=== PATIENT | female | born 1930 | race Caucasian/White ===

== ENCOUNTER 2017-03-18 21:53 | Inpatient (IN) ==
--- NOTE | 2017-03-18 22:04 | Emergency Department Note ---
Disposition Clinical Impression: Fall, Compression fracture of L1 lumbar vertebra Disposition: Admitted As Inpatient Condition: Good General Adult HPI - General Chief complaint: ED Fall Stated complaint: Fall at home/Low Back Pain Time Seen by Provider: 03/18/17 21:56 Source: EMS Limitations: altered mental status, age - History of Present Illness Pain Scale: 4 - Related Data Home Medications Medication Instructions Recorded Confirmed Cranberry 400 mg PO DAILY 02/15/16 03/19/17 Donepezil [Aricept] 10 mg PO HS 02/15/16 03/19/17 Docusate [Colace] 100 mg PO BID 03/19/16 03/19/17 Ergocalciferol (VITAMIN D2) 400 unit PO DAILY 03/19/16 03/19/17 [Vitamin D] Paroxetine [Paxil] 20 mg PO DAILY 03/20/16 03/19/17 Megestrol Acetate [Megace] 800 mg PO DAILY 10/18/16 03/19/17 Polyethylene Glycol 3350 17 gm PO DAILY 10/18/16 03/19/17 [Smoothlax] Acetaminophen [Tylenol] 650 mg PO Q6HR PRN 03/19/17 03/19/17 LORazepam [Ativan] 0.5 mg PO Q12HR PRN 03/19/17 03/19/17 Tramadol HCl [Ultram] 50 mg PO TID PRN 03/19/17 03/19/17 Previous Rx's Medication Instructions Recorded Ondansetron ODT [Zofran ODT] 4 mg SL Q6HR PRN #14 tab.rapdis 03/18/17 Allergies Allergy/AdvReac Type Severity Reaction Status Date / Time Sulfa (Sulfonamide Allergy See Verified 03/20/16 13:54 Antibiotics) Comments egg AdvReac Gastrointestinal Verified 03/20/16 13:54 Upset milk AdvReac Gastrointestinal Verified 03/20/16 13:54 Upset morphine AdvReac Confusion Verified 03/20/16 13:54 nitrofurantoin AdvReac Nausea Verified 03/20/16 13:54 [From Macrobid] Penicillins AdvReac Nausea Verified 03/20/16 13:54 Past Medical History - Past Medical History Medical history: Reports: dementia, GERD, hypertension, syncope, other Surgical history: Reports: orthopedic, other Psychiatric history: Reports: no psych history EMT I/99 history: Reports: no EMT I/99 history - Social History Smoking Status: Former smoker Smokeless Tobacco Status: No Alcohol use: Reports: none Drug use: Reports: none Physical Exam - General Limitations: altered mental status, age General appearance: alert, in no apparent distress Course Vital Signs Temperature 97.6 F 03/18/17 21:54 Pulse Rate 75 03/18/17 21:54 Respiratory Rate 16 03/18/17 21:54 Blood Pressure 191/93 03/18/17 21:54 O2 Sat by Pulse Oximetry 99 03/18/17 21:54 Temperature 98.1 F 03/20/17 06:23 Pulse Rate 93 03/20/17 06:23 Respiratory Rate 16 03/20/17 06:23 Blood Pressure 148/67 03/20/17 06:23 O2 Sat by Pulse Oximetry 93 03/20/17 06:23 Oxygen Delivery Oxygen Delivery Room Air Medical Decision Making - Lab Data Result diagrams: 03/19/17 05:00 03/19/17 05:00 Lab Results 03/19/17 03/19/17 Range/Units 00:25 00:25 WBC 15.5 H (4.3-11.1) K/mcL RBC 4.38 (3.82-4.97) M/mcL Hgb 13.0 (11.5-15.4) g/dL Hct 40.5 (35.3-44.9) % MCV 92.5 (83.0-100.0) fL MCH 29.7 (28.0-33.3) pg MCHC 32.1 (31.6-35.5) g/dL RDW 12.9 (11.5-14.5) % Plt Count 270 (140-400) K/mcL MPV 10.9 (9.4-12.4) fL Immature Gran % 0.6 (0-4) % Seg Neutrophils % 86.6 % Lymphocytes % 7.9 % Monocytes % 4.6 % Eosinophils % 0.1 % Basophils % 0.2 % Neutrophils # 13.4 H (1.6-8.9) K/mcL Lymphocytes # 1.2 (0.6-4.6) K/mcL Monocytes # 0.7 (0.0-1.3) K/mcL Eosinophils # 0.0 (0.0-0.6) K/mcL Basophils # 0.0 (0.0-0.2) K/mcL Sodium 141 (136-145) mEq/L Potassium 3.0 L (3.5-4.5) mEq/L Chloride 101 (98-109) mEq/L Carbon Dioxide 28 (19-29) mEq/L BUN 10 (7-20) mg/dL Creatinine 0.79 (0.57-1.11) mg/dL Est GFR ( Amer) > 60 (> 60) Est GFR (Non-Af Amer) > 60 (> 60) BUN/Creatinine Ratio 13 (6-26) Glucose 126 H (70-99) mg/dL Calculated Osmolality 293 (280-300) Calcium 9.2 (8.6-10.8) mg/dL Attestation Statement - Attestation Attestation: I examined this patient and my medical decision-making was reviewed with the Resident Physician. I agree with the documented findings, disposition and treatment plan as described except to the extent set forth below. Face to face time provided Patient sustained a mechanical fall at home. She presents by EMS. She has a history of dementia. History obtained by the daughter. Patient is alert and pleasant and appears in no acute distress.
--- NOTE | 2017-03-18 22:07 | Emergency Department Note ---
Disposition Clinical Impression: Fall Qualifiers: Encounter type: initial encounter Qualified Code(s): W19.XXXA - Unspecified fall, initial encounter Compression fracture of L1 lumbar vertebra Qualifiers: Encounter type: initial encounter Fracture type: closed Qualified Code(s): S32.010A - Wedge compression fracture of first lumbar vertebra, initial encounter for closed fracture Disposition: Admitted As Inpatient Condition: Good Instructions: Vertebral Compression Fracture (ED), Fall Prevention for Older Adults (ED) Prescriptions: Ondansetron ODT [Zofran ODT] 4 mg SL Q6HR PRN #14 tab.rapdis PRN Reason: Nausea And Vomiting Referrals: Florence De DO [Primary Care Provider] - Forms: ED Satisfaction Letter Time of Disposition: 23:23 Fall HPI - General Chief Complaint: ED Fall Stated Complaint: Fall at home/Low Back Pain Time Seen by Provider: 03/18/17 21:56 Source: patient, EMS Mode of arrival: EMS Limitations: altered mental status Nursing Notes Reviewed: Yes Vital Signs Reviewed: Yes - History of Present Illness HPI Narrative: 86-year-old female history of dementia presents to the ER via EMS due to fall. Family reports that she has 24-hour care and they have cameras there as well. States that she got up to walk around and that she is usually supposed to have assistance. States that on the cameras they saw her walking around the bed when she fell and caught herself. States that she did lightly strike her head against the ground. No prolonged downtime. EMS was called and the patient was brought in for evaluation. No antiplatelet or anticoagulation use. She currently complains of low back pain. She has a skin tear to her right elbow where she struck the bed. No numbness tingling or paresthesias. No other complaints. Pt Subjective Complaint: fall Onset (ago): Just [employer] Fall From: standing Fall Witnessed: yes Place Fall Occurred: home Loss of Consciousness: none Prolonged Down Time?: no Symptoms Prior to Fall: none Context: history of frequent falls Location of injury: back Associated symptoms (after fall): Denies: headache, numbness, chest pain, shortness of breath, abdominal pain - Related Data Home Medications Medication Instructions Recorded Confirmed Spironolactone [Aldactone] 25 mg PO QAM 04/19/15 10/18/16 Cranberry 400 mg PO DAILY 02/15/16 10/18/16 Donepezil [Aricept] 10 mg PO HS 02/15/16 10/18/16 Alendronate Sodium 70 mg PO MANDEL 03/19/16 10/18/16 Aspirin 81 mg PO DAILY 03/19/16 10/18/16 Docusate [Colace] 100 mg PO BID 03/19/16 10/18/16 Ergocalciferol (VITAMIN D2) 400 unit PO DAILY 03/19/16 10/18/16 [Vitamin D] Enalapril Maleate [Vasotec] 5 mg PO DAILY 03/20/16 10/18/16 Paroxetine [Paxil] 20 mg PO DAILY 03/20/16 10/18/16 Lactose-Reduced Food [Ensure 1 bottle PO BID 10/18/16 10/18/16 Liquid] MOM Conc [MILK OF MAGNESIA conc] 10 ml PO DAILY PRN 10/18/16 10/18/16 Megestrol Acetate [Megace] 800 mg PO DAILY 10/18/16 10/18/16 Oxycodone HCl [Oxaydo] 5 - 10 mg PO Q6HR PRN 10/18/16 10/18/16 Polyethylene Glycol 3350 17 gm PO DAILY 10/18/16 10/18/16 [Smoothlax] Previous Rx's Medication Instructions Recorded HYDROcodone/Acet 5/325 mg [Saxon 0.5 - 1 tab PO Q4H PRN #10 tab 10/18/16 5-325 mg] Ondansetron ODT [Zofran ODT] 4 mg SL Q6HR PRN #14 tab.rapdis 03/18/17 Allergies Allergy/AdvReac Type Severity Reaction Status Date / Time Sulfa (Sulfonamide Allergy See Verified 03/20/16 13:54 Antibiotics) Comments egg AdvReac Gastrointestinal Verified 03/20/16 13:54 Upset milk AdvReac Gastrointestinal Verified 03/20/16 13:54 Upset morphine AdvReac Confusion Verified 03/20/16 13:54 nitrofurantoin AdvReac Nausea Verified 03/20/16 13:54 [From Macrobid] Penicillins AdvReac Nausea Verified 03/20/16 13:54 All systems ED: reviewed and negative except as stated. Cardiovascular: Denies: chest pain Respiratory: Denies: dyspnea Gastrointestinal: Denies: abdominal pain Musculoskeletal: Reports: back pain. Denies: neck pain Neurological: Denies: numbness, paresthesias Fall PMH - Past Medical History Medical history: Reports: dementia, GERD, hypertension, syncope, other Surgical history: Reports: orthopedic, other Psychiatric history: Reports: no psych history CLIPPER COUNTERS history: Reports: no CLIPPER COUNTERS history - Social History Smoking Status: Former smoker Alcohol use: Reports: none Drug use: Reports: none Physical Exam - General Limitations: altered mental status, age General appearance: alert, in no apparent distress - Head Head exam: atraumatic, normocephalic, normal inspection - Eye Eye exam: Present: normal appearance, EOMI - ENT ENT exam: normal exam - Neck Neck exam: Present: normal inspection, full ROM. Absent: tenderness - Chest Chest inspection: Present: normal inspection, symmetric chest wall rise - Respiratory Respiratory exam: Present: normal lung sounds bilaterally - Cardiovascular Cardiovascular exam: Present: regular rate, normal rhythm, normal heart sounds - Abdominal Exam Abdominal exam: Present: soft, Non-Tender. Absent: tenderness, distention, guarding, rigidity - Extremities Exam Extremities exam: Present: normal inspection, full ROM - Expanded Upper Extremity Exam Shoulder exam: Present: normal inspection, full ROM Arm exam: Present: normal inspection, full ROM Elbow exam: Present: normal inspection, full ROM, other (There is a skin tear to the right elbow.) Forearm/Wrist exam: Present: normal inspection, full ROM Hand exam: Present: normal inspection, full ROM Vascular exam: Normal: radial pulse - Expanded Lower Extremity Exam Hip/Pelvis exam: Present: normal inspection, full ROM Upper leg exam: Present: normal inspection, full ROM Knee exam: Present: normal inspection, full ROM Lower leg exam: Present: normal inspection, full ROM Ankle exam: Present: normal inspection, full ROM Foot/toe exam: Present: normal inspection, full ROM - Neurological Exam Neurological exam: Present: alert, other (Alert to self. GCS 15. Nonfocal neurologic exam. Moves all extremities equally. Sensation to light touch equal in the upper and lower extremities bilaterally. Muscle strength 4/5 in the upper and lower extremities bilaterally.). Absent: oriented X3 - Psychiatric Psychiatric exam: Present: normal affect, normal mood - Skin Skin exam: Present: warm, dry, intact, normal color Course Course Narrative: Patient seen and examined. Family at bedside. We will obtain a CT scan of the head and cervical spine as well as x-rays of the right elbow, pelvis and lumbar spine. - Reevaluation(s) Reevaluation #1: Discussed results of imaging with the patient and family. They report that tramadol has helped her pain in the past and that is about the only pain medication she can take. They are comfortable going home and having the spine surgeon to follow-up with as needed. Reevaluation #2: The patient was unable to bear weight here secondary to pain. Patient will require admission for pain control, PT/OT. Vital Signs Temperature 97.6 F 03/18/17 21:54 Pulse Rate 75 03/18/17 21:54 Respiratory Rate 16 03/18/17 21:54 Blood Pressure 191/93 03/18/17 21:54 O2 Sat by Pulse Oximetry 99 03/18/17 21:54 Temperature 97.6 F 03/18/17 21:54 Pulse Rate 75 03/18/17 21:54 Respiratory Rate 16 03/18/17 21:54 Blood Pressure 191/93 03/18/17 21:54 O2 Sat by Pulse Oximetry 99 03/18/17 21:54 Oxygen Delivery Oxygen Delivery Room Air Fall - [facility] Narrative Medical decision making narrative: 86-year-old female presents to the ER status post fall. History of dementia and was out of bed without assistance. Nonfocal neurologic exam here. CT of the head and cervical spine showed no acute of abnormality. pelvis x-ray with old injuries. Age-indeterminate compression fracture of L1. She does have pain over the site. We attempted to ambulate her here however she was unable to secondary to pain. Family reports she has bad reactions to most pain medications with the exception of tramadol. We will admit the patient to the hospitalist service for back pain, unable to ambulate and for likely PT/OT. - Radiology Data Radiology results reviewed: Yes I reviewed the patient's radiology results. Cervical Spine CT 03/18/17 22:02 IMPRESSION: No acute abnormality of the cervical spine. Remote compression fracture of T2. D/ / Kimo Kate MD / Kimo Kate MD Interpreting Provider: Kimo Kate MD Head CT 03/18/17 22:02 IMPRESSION: No acute intracranial abnormality. D/ / Kimo Kate MD / Kimo Kate MD Interpreting Provider: Kimo Kate MD Pelvis X-Ray 03/18/17 22:02 IMPRESSION: Multiple sites of remote fracture injury. No acute fracture or dislocation identified D/ / Kendell Mckenzie MD / Kendell Mckenzie MD Interpreting Provider: Kendell Mckenzie MD Lumbar Spine X-Ray 03/18/17 22:03 IMPRESSION: Indeterminate age L1 compression fracture is noted which may be acute given the history. D/ / Kendell Mckenzie MD / Kendell Mckenzie MD Interpreting Provider: Kendell Mckenzie MD - EKG Data EKG attestation: Yes I reviewed and interpreted this EKG. EKG results narrative: EKG demonstrates sinus rhythm with a rate of 69 bpm. There is diffuse artifact on the EKG. Normal intervals. Normal axis. Normal R-wave progression. No gross ST elevations or depressions. No acute ischemic findings. S.B.A.R. - S.B.A.R. Situation: Demographics, MOA Background: Presenting Complaint, Relevant PMH, Meds, & Allergies Assessment: Course and respsone to treatment, Exam Concerns, Patient/Family Expectation, Pertinant Lab Results Recommendation: Barrier(s) to disposition S.B.A.R. Report Given to: Dr. Tony Hanks Repor Time: 00:32
[2017-03-18] MEDS ORDERED: traMADol 50 MG TABLET PO ONE (23:14)
[2017-03-18] MEDS ORDERED: Ondansetron ODT 4 MG TAB.RAPDIS SL ONE (23:40)
[2017-03-19 00:34] LABS: Basophils % 0.2 %; Eosinophils % 0.1 %; Hematocrit 40.5 % (35.3-44.9); Immature Granulocytes % 0.6 % (0-4); Lymphocytes # 1.2 K/mcL (0.6-4.6); Lymphocytes % 7.9 %; Mean Corpuscular HGB Conc 32.1 g/dL (31.6-35.5); Mean Corpuscular Hemoglobin 29.7 pg (28.0-33.3); Mean Corpuscular Volume 92.5 fL (83.0-100.0); Mean Platelet Volume 10.9 fL (9.4-12.4); Monocytes # 0.7 K/mcL (0.0-1.3); Monocytes % 4.6 %; Neutrophils # 13.4 K/mcL (1.6-8.9); Platelet Count 270 K/mcL (140-400); Red Blood Count 4.38 M/mcL (3.82-4.97); Red Cell Distribution Width 12.9 % (11.5-14.5); Segmented Neutrophils % 86.6 %
[2017-03-19 00:50] LABS: BUN/Creatinine Ratio 13 (6-26); Blood Urea Nitrogen 10 mg/dL (7-20); Calcium 9.2 mg/dL (8.6-10.8); Carbon Dioxide 28 mEq/L (19-29); Chloride 101 mEq/L (98-109); Glucose 126 mg/dL (70-99); Osmolality,Calculated 293 (280-300); Sodium 141 mEq/L (136-145); eGFR For African Americans > 60 (> 60); eGFR For Non-African Americans > 60 (> 60)
[2017-03-19] MEDS ORDERED: Ondansetron 4 MG/2 ML VIAL IVP PRN (02:01)
[2017-03-19] MEDS ORDERED: Naloxone 0.4 MG/ML INJ IVP PRN (02:01)
[2017-03-19] MEDS ORDERED: Acetaminophen 325 MG TABLET PO PRN (02:01)
[2017-03-19] MEDS ORDERED: traMADol 50 MG TABLET PO PRN (02:04)
[2017-03-19] MEDS: 0.9 % Sodium Chloride 1,000 ML IVC SCH ×2 (02:28→16:33)
[2017-03-19] MEDS: *HR* LORazepam 0.5 MG TABLET PO PRN (02:28)
--- NOTE | 2017-03-19 02:38 | Internal Med History&Physical ---
Date of Encounter: 03/19/17 Time of Encounter: 01:40 Assessment and Plan (1) Fall Current visit: Yes Status: Acute s/p fall Pt has history of recurrent falls and was admitted for the same issue last year in February Current imaging findings concerning for a L1 and T2 compression fracture, however no definitive reading reported about the chronicity or acuity of these fractures will continue supportive care pain control fall precautions PT/OT evaluation when able consider spinal surgery evaluation if symptoms persist Qualifiers: Encounter type: initial encounter Qualified Code(s): W19.XXXA - Unspecified fall, initial encounter (2) Dementia Current visit: No Status: Chronic Pt's mental status at baseline as per family continue home medications Qualifiers: Dementia type: Alzheimer's disease Alzheimer's disease onset: unspecified onset Dementia behavioral disturbance: with behavioral disturbance Qualified Code(s): G30.8 - Other Alzheimer's disease; F02.81 - Dementia in other diseases classified elsewhere with behavioral disturbance (3) HTN (hypertension) Current visit: No Status: Chronic Qualifiers: Hypertension type: essential hypertension Qualified Code(s): I10 - Essential (primary) hypertension (4) Leukocytosis, unspecified Current visit: Yes Status: Acute Of unclear etiology will obtain UA no clinical signs of infectious etiology present will monitor off abx at this time, If UA is concerning for UTI, will start her on empiric abx Qualifiers: Leukocytosis type: unspecified Qualified Code(s): D72.829 - Elevated white blood cell count, unspecified (5) DVT prophylaxis Current visit: Yes Status: Acute Heparin SQ Internal Medicine - H&P: HPI Chief complaint: s/p fall Admitted From: Home Plans for Post Hospital Care: Transfer [facility] History of present illness: Ms. Mahoney is a 86 year old female with PMH of Dementia, HTN, GERD, multiple falls who was brought to the ER s/p fall. Patient lives alone however has 24 hour video surveillance supervision which found the patient getting out of bed and falling to the ground, due to which EMS brought the patient to the ER. At baseline, patient is AAO x 0 due to her dementia but she is pleasantly confused. She was evaluated with her family present at bedside. Pt reports of severe lower back pain, imaging findings are concerning for L1 compression fracture however it is not definitive if this an acute process. Theres also a remote compression fracture of T2 reported. As per family, patient is unable to tolerate narcotics because it causes her severe delirium. She received her home dose of tramadol in the ER which did not provide her with any relief. At this time she is laying in bed and able to converse. reports of severe lower back and pelvis pain. Denies any headache, chest pain, sob, abd pain, n/v, fevers, or chills. I had a detailed discussion about patient's advance directives. Her family stated that the patient would like to be DNR/DNI Past Med Surg Social Fam HX - Past Medical History Medical history: dementia, GERD, hypertension, osteoporosis, syncope, other Psychiatric history: no psych history - Past Surgical History Surgical History: orthopedic, other - Social History Smoking Status: Former smoker Smokeless Tobacco Status: No Alcohol use: none Drug use: none - Family History Mother Living Status: Hx Family Cardiac Disorders: Yes Hx Family Respiratory Disorders: No Hx Family Cancer: No Hx Family GI Disorders: No Hx Family Endocrine Disorder: No Hx Family Neuromuscular Disorders: No Hx Family Neurologic Disorders: Yes (Stroke) Hx Family HEENT Disorders: No Hx Family Autoimmune Disorders: No Internal Medicine - H&P: Meds Cranberry 400 mg PO DAILY 02/15/16 [History] Donepezil [Aricept] 10 mg PO HS 02/15/16 [History] Docusate [Colace] 100 mg PO BID 03/19/16 [History] Ergocalciferol (VITAMIN D2) [Vitamin D] 400 unit PO DAILY 03/19/16 [History] Paroxetine [Paxil] 20 mg PO DAILY 03/20/16 [History] Megestrol Acetate [Megace] 800 mg PO DAILY 10/18/16 [History] Polyethylene Glycol 3350 [Smoothlax] 17 gm PO DAILY 10/18/16 [History] Ondansetron ODT [Zofran ODT] 4 mg SL Q6HR PRN #14 tab.rapdis 03/18/17 [Rx] Acetaminophen [Tylenol] 650 mg PO Q6HR PRN 03/19/17 [History] LORazepam [Ativan] 0.5 mg PO Q12HR PRN 03/19/17 [History] Tramadol HCl [Ultram] 50 mg PO TID PRN 03/19/17 [History] 3 Allergy/AdvReac Type Severity Reaction Status Date / Time Sulfa (Sulfonamide Allergy See Verified 03/20/16 13:54 Antibiotics) Comments egg AdvReac Gastrointestinal Verified 03/20/16 13:54 Upset milk AdvReac Gastrointestinal Verified 03/20/16 13:54 Upset morphine AdvReac Confusion Verified 03/20/16 13:54 nitrofurantoin AdvReac Nausea Verified 03/20/16 13:54 [From Macrobid] Penicillins AdvReac Nausea Verified 03/20/16 13:54 All Systems PM: A 10-system review of systems was performed and is negative for pertinent findings except as documented above in the HPI. - Constitutional Constitutional: as per HPI - Constitutional Vitals: Temp Pulse Resp BP Pulse Ox 97.6 F 75 16 0/0 99 03/18/17 21:54 03/18/17 21:54 03/19/17 00:41 03/19/17 00:41 03/18/17 21:54 General appearance: Present: A&O X 1, no acute distress, underweight - Head Head exam: Present: atraumatic, normocephalic - Respiratory Respiratory exam: Present: CTAB. Absent: respiratory distress, wheezes - Cardiovascular Cardiovascular exam: Present: RRR, +S1, +S2. Absent: diastolic murmur, systolic murmur, tachycardia - GI/Abdominal GI/Abdominal exam: Present: normal bowel sounds, soft, no peritoneal signs. Absent: distended, tenderness - Extremities Exam Extremities exam: Present: warm, radial pulses palpable and symmetrical. Absent : calf tenderness - Neurological Exam Neurological exam: Present: alert Internal Med - H&P Results - Labs CBC & Chem 7: 03/19/17 00:25 03/19/17 00:25
[2017-03-19] MEDS: Ketorolac 30 MG/ML VIAL IVP PRN (02:46)
[2017-03-19 04:47] LABS: Bilirubin,Urine Small (Negative); Blood,Urine Large (Negative); Clarity,Urine Cloudy (Clear); Color,Urine Yellow (Yellow); Glucose,Urine (UA) Normal (Normal); Ketones,Urine 40 mg/dL (Negative); Leukocyte Esterase,Urine Small (Negative); Nitrite,Urine Negative (Negative); Protein,Urine 30 mg/dL (Neg-Trace); Urobilinogen,Urine Normal (Normal)
[2017-03-19 04:50] LABS: Bacteria,Urine Many per hpf (None-Few); Hyaline Casts,Urine None Seen per lpf (None-Few); RBC,Urine 0-3 per hpf (0-3); Squamous Epithelial Cell,Urine None Seen per lpf (None-Few); WBC,Urine 30-50 per hpf (0-3)
[2017-03-19 05:18] LABS: Basophils % 0.2 %; Hematocrit 36.6 % (35.3-44.9); Immature Granulocytes % 0.7 % (0-4); Lymphocytes # 0.7 K/mcL (0.6-4.6); Lymphocytes % 5.5 %; Mean Corpuscular HGB Conc 32.8 g/dL (31.6-35.5); Mean Corpuscular Hemoglobin 29.9 pg (28.0-33.3); Monocytes # 0.4 K/mcL (0.0-1.3); Monocytes % 3.1 %; Platelet Count 251 K/mcL (140-400); Red Blood Count 4.02 M/mcL (3.82-4.97); Segmented Neutrophils % 90.5 %
[2017-03-19 05:40] LABS: BUN/Creatinine Ratio 13 (6-26); Blood Urea Nitrogen 10 mg/dL (7-20); Carbon Dioxide 30 mEq/L (19-29); Chloride 104 mEq/L (98-109); Glucose 120 mg/dL (70-99); Magnesium 1.7 mg/dL (1.6-2.6); Osmolality,Calculated 292 (280-300); Phosphorous 3.8 mg/dL (2.3-4.7); Potassium 3.5 mEq/L (3.5-4.5); Sodium 141 mEq/L (136-145); eGFR For African Americans > 60 (> 60); eGFR For Non-African Americans > 60 (> 60)
[2017-03-19] MEDS: *HR* Heparin 5,000 UNIT/ML VIAL SQ SCH ×2 (07:46→16:34)
[2017-03-19] MEDS: Megestrol Acetate 400 MG/10 ML UDC PO SCH (10:33)
[2017-03-19] MEDS: Cholecalciferol (D-3) 1,000 UNIT TABLET PO SCH (10:33)
[2017-03-19] MEDS: CRANBERRY PO SCH (10:34)
[2017-03-19] MEDS: cephALEXin 500 MG CAPSULE PO SCH ×2 (10:34→20:29)
--- NOTE | 2017-03-19 12:11 | Electrocardiograph Report ---
[place] [id number] Test Date: 2017-03-18 Pat Name: Rachel Mahoney Department: 102 Room: [facility] Gender: F Swatch Checker: Jaimie : 1930 Requested By: Hesham Kan Order Number: [id number] Reading MD: Lynette Gil Measurements Intervals [place] Rate: 69 P: 61 [place]: 165 QRS: 36 QRSD: 94 T: 71 QT: 406 QTc: 426 Interpretive Statements PROBABLY SINUS RHYTHM ARTIFACT LIMITS INTERPRETATION Electronically Signed On 03-19-2017 12:09:58 EDT by Lynette Gil
--- NOTE | 2017-03-19 16:52 | Event Note ---
Date of Encounter: 03/19/17 Time of Encounter: 10:15 Patient is doing well today. Denies any pain as long as she does not move. Consulted spine surgery for vertebral fracture. Will follow recommendations. Physical therapy consulted. family services assistant consulted for discharge planning.
[2017-03-19] MEDS ORDERED: Haloperidol Lactate 5 MG/ML VIAL IM ONE (22:49)
[2017-03-20] MEDS: Ketorolac 30 MG/ML VIAL IVP PRN ×2 (00:28→14:26)
[2017-03-20] MEDS: 0.9 % Sodium Chloride 1,000 ML IVC SCH (06:24)
[2017-03-20] MEDS: *HR* Heparin 5,000 UNIT/ML VIAL SQ SCH ×2 (06:25→19:21)
[2017-03-20] MEDS: Cholecalciferol (D-3) 1,000 UNIT TABLET PO SCH (09:55)
[2017-03-20] MEDS: Megestrol Acetate 400 MG/10 ML UDC PO SCH (09:55)
[2017-03-20] MEDS: cephALEXin 500 MG CAPSULE PO SCH ×2 (09:55→21:33)
[2017-03-20] MEDS: CRANBERRY PO SCH (09:56)
--- NOTE | 2017-03-20 12:10 | Spine Progress Note ---
Date of Encounter: 03/20/17 Time of Encounter: 12:08 - Assessment and Plan (1) Osteopenia Current Visit: Yes Status: Chronic Qualifiers: Osteopenia location: spine Qualified Code(s): M85.88 - Other specified disorders of bone density and structure, other site (2) Vertebral compression fracture Current Visit: Yes Status: Acute We are going to obtain an MRI of the lumbar spine to assess the acuity of the fracture. The family is going to decide between nonoperative management with analgesics and early mobilization as tolerated, versus consideration of vertebral augmentation via kyphoplasty. We will confer after results of MRI evaluation. If the family and patient decided on kyphoplasty she would need medical optimization and clearance and plan to do procedure Sunday, 2016. Qualifiers: Encounter type: initial encounter Qualified Code(s): M48.50XA - Collapsed vertebra, not elsewhere classified, site unspecified, initial encounter for fracture Subjective Principal diagnosis: Vertebral compression fracture L2, osteopenia Interval history: 86-year-old with dementia status post fall several days ago. She was admitted from the ER for definitive management. Patient's daughter at bedside who act as the predominant historian. She complains of pain in her lower back. On examination she is afebrile vital signs stable. She is alert. She complains of low back pain. She has tenderness to palpation in the thoracolumbar region. She is neurovascularly intact with regard to her bilateral upper and lower extremities. Radiographic evaluation includes AP and lateral views of the lumbar spine. There is multilevel degenerative changes seen. There is an overall osteopenic appearance of the bones. Is a vertebral compression fracture at L2. Objective Vital signs: Vital Signs Temp Pulse Resp BP Pulse Ox 03/20/17 11:35 98.9 F 98 16 165/72 93 03/20/17 06:23 98.1 F 93 16 148/67 93 03/20/17 04:29 98.5 F 70 15 146/83 94 03/20/17 00:23 102 141/64 03/19/17 23:46 98.9 F 99 11 192/92 93 03/19/17 21:14 98.2 F 89 18 181/81 92 03/19/17 14:31 98.7 F 85 16 157/84 93 Intake and Output 03/19/17 03/20/17 03/20/17 23:59 07:59 15:59 Intake Total 1000 / 1000 Output Total 600 / 600 Balance -600 / -600 1000 / 1000 Intake: IV Fluids 1000 / 1000 0.9 % Sodium Chloride 1,000 ML 1000 / 1000 @ 75 mls/hr IVC .[id number] JAMES Rx #:[id number] Output: Urine 600 / 600 Other: Weight 41.022 kg - Labs CBC & BMP: 03/19/17 05:00 03/19/17 05:00 Labs: Abnormal lab results WBC 12.1 K/mcL (4.3-11.1) H 03/19/17 05:00 Neutrophils # 11.0 K/mcL (1.6-8.9) H 03/19/17 05:00 Carbon Dioxide 30 mEq/L (19-29) H 03/19/17 05:00 Glucose 120 mg/dL (70-99) H 03/19/17 05:00 Urine Clarity Cloudy (Clear) A 03/19/17 04:28 Urine Protein 30 mg/dL (Neg-Trace) H 03/19/17 04:28 Urine Ketones 40 mg/dL (Negative) H 03/19/17 04:28 Urine Blood Large (Negative) H 03/19/17 04:28 Urine Bilirubin Small (Negative) H 03/19/17 04:28 Ur Leukocyte Esterase Small (Negative) H 03/19/17 04:28 Urine Microscopic WBC 30-50 per hpf (0-3) H 03/19/17 04:28 Urine Bacteria Many per hpf (None-Few) H 03/19/17 04:28 Consult Discharge Plan - Plan Referrals: Florence De, [Primary Care Provider] -
--- NOTE | 2017-03-20 17:43 | Internal Med Progress Note ---
Date of Encounter: 03/20/17 Time of Encounter: 17:47 - Assessment and plan (1) Fall Current Visit: Yes Status: Acute Assessment and plan: s/p fall on day of presentation. Current imaging findings concerning for a L1 and T2 compression fracture, however no definitive reading reported about the chronicity or acuity of fractures. Cont pain control, fall precautions, PT/OT evaluation when able. MRI of the lumbar spine to assess the acuity of the fracture. Ortho following Qualifiers: Encounter type: initial encounter Qualified Code(s): W19.XXXA - Unspecified fall, initial encounter (2) HTN (hypertension) Current Visit: No Status: Chronic Assessment and plan: BP elevated but not on antihypertensives at home. Add low dose amlodipine. Monitor BP and titrate PRN Qualifiers: Hypertension type: essential hypertension Qualified Code(s): I10 - Essential (primary) hypertension (3) Bacteriuria, asymptomatic Current Visit: Yes Status: Acute Assessment and plan: WBC 12K. Cont treating for asymptomatic bacteriuria with advanced age. Urine cx pending (4) Dementia Current Visit: No Status: Chronic Assessment and plan: per hx. Mentation appears at baseline. Cont home Aricept. Supportive care Qualifiers: Dementia type: Alzheimer's disease Alzheimer's disease onset: unspecified onset Dementia behavioral disturbance: with behavioral disturbance Qualified Code(s): G30.8 - Other Alzheimer's disease; F02.81 - Dementia in other diseases classified elsewhere with behavioral disturbance (5) DVT prophylaxis Current Visit: Yes Status: Acute - Subjective Interval history: Seen and examined at bedside, patient is alert to self only, she is able to have a conversation but is not able to give details. She says her back hurts but does not elaborate. Denies CP, no SOB. - Constitutional Vitals: Temp Pulse Resp BP Pulse Ox 98.8 F 107 16 159/75 93 03/20/17 15:31 03/20/17 15:31 03/20/17 15:31 03/20/17 15:31 03/20/17 15:31 General appearance: Present: A&O X 1, no acute distress, underweight - Head Head exam: Present: atraumatic, normocephalic - Eye Eye exam: Present: PERRL, conjuntiva pink, sclera anicteric Pupils: Present: PERRL - Neck Neck exam general surgery: Present: supple, trachea midline. Absent: lymphadenopathy - Respiratory Respiratory exam: Present: CTAB. Absent: accessory muscle use, rales, rhonchi, wheezes - Cardiovascular Cardiovascular exam: Present: RRR, +S1, +S2. Absent: diastolic murmur, gallop, rubs, systolic murmur - GI/Abdominal GI/Abdominal exam: Present: normal bowel sounds, soft, no peritoneal signs. Absent: distended, tenderness - Extremities Exam Extremities exam: Present: warm, radial pulses palpable and symmetrical. Absent : calf tenderness, cyanotic, pedal edema - Neurological Exam Neurological exam: Present: CN II-XII intact, oriented X3, no focal deficits. Absent: pronater drift, facial droop, speech deficit - Skin Skin exam: Present: dry, intact Internal Medicine: Result - Labs CBC & Chem 7: 03/19/17 05:00 03/19/17 05:00 - Impressions Impressions Lumbar Spine MRI 03/20/17 11:39 IMPRESSION: 1. There is an acute L2 burst fracture with approximately 20% loss of vertebral body height. 2. There are suspected subacute/chronic bilateral sacral insufficiency fractures extending through the S2 vertebral body with associated cortical deformity. These are new compared to a CT of the left hip on February 15, 2016. 3. No critical central spinal canal stenosis. D/ : / 03/20/2017 15:58:35 Harrison Beckman MD / sol Interpreting Provider: Harrison Beckman MD Consult Discharge Plan - Plan Referrals: Florence De DO [Primary Care Provider] -
[2017-03-20] MEDS ORDERED: *HR* Enoxaparin 40 MG/0.4 ML SYRINGE SQ SCH (17:45)
[2017-03-20] MEDS: amLODIPine 5 MG TABLET PO SCH (19:20)
[2017-03-21] MEDS: 0.9 % Sodium Chloride 1,000 ML IVC SCH ×2 (04:10→22:03)
[2017-03-21] MEDS: Ketorolac 30 MG/ML VIAL IVP PRN ×3 (04:11→23:50)
[2017-03-21] MEDS: *HR* Heparin 5,000 UNIT/ML VIAL SQ SCH ×2 (05:54→17:57)
[2017-03-21 06:12] LABS: Hematocrit 38.9 % (35.3-44.9); Hemoglobin 12.6 g/dL (11.5-15.4); Mean Corpuscular HGB Conc 32.4 g/dL (31.6-35.5); Mean Corpuscular Volume 89.6 fL (83.0-100.0); Mean Platelet Volume 11.7 fL (9.4-12.4); Platelet Count 255 K/mcL (140-400); Red Blood Count 4.34 M/mcL (3.82-4.97); Red Cell Distribution Width 13.1 % (11.5-14.5)
[2017-03-21 06:28] LABS: Alanine Aminotransferase 6 Units/L (0-55); Alkaline Phosphatase 70 Units/L (38-126); Aspartate Amino Transferase 17 Units/L (5-34); BUN/Creatinine Ratio 10 (6-26); Bilirubin,Total 0.8 mg/dL (0.2-1.2); Blood Urea Nitrogen 7 mg/dL (7-20); Calcium 8.6 mg/dL (8.6-10.8); Carbon Dioxide 22 mEq/L (19-29); Chloride 107 mEq/L (98-109); Globulin 3.1 g/dL (2.4-3.5); Glucose 75 mg/dL (70-99); Osmolality,Calculated 289 (280-300); Potassium 2.9 mEq/L (3.5-4.5); Sodium 141 mEq/L (136-145); Total Protein 6.1 g/dL (6.0-8.3); eGFR For African Americans > 60 (> 60); eGFR For Non-African Americans > 60 (> 60)
[2017-03-21 06:31] LABS: INR 1.2; Prothrombin Time 12.6 Seconds (9.4-12.1)
--- NOTE | 2017-03-21 09:29 | Spine Progress Note ---
Date of Encounter: 03/21/17 Time of Encounter: 09:27 - Assessment and Plan (1) Osteopenia Current Visit: Yes Status: Chronic Qualifiers: Osteopenia location: spine Qualified Code(s): M85.88 - Other specified disorders of bone density and structure, other site (2) Vertebral compression fracture Current Visit: Yes Status: Acute Marais examination confirmed an acute L1 fracture. It also confirmed sacral insufficiency fractures. In the interest of pain control and avoidance of chronic narcotic treatment I find it reasonable to consider a kyphoplasty L1. Risk benefits possible competitions and alternatives were discussed with the patient and daughter. The daughters, come in for consent and they would like to proceed. She understands that the patient will need medical optimization and clearance prior to any surgical intervention. Qualifiers: Encounter type: initial encounter Qualified Code(s): M48.50XA - Collapsed vertebra, not elsewhere classified, site unspecified, initial encounter for fracture (3) Sacral insufficiency fracture Current Visit: Yes Status: Acute Qualifiers: Encounter type: initial encounter Qualified Code(s): M84.48XA - Pathological fracture, other site, initial encounter for fracture Subjective Principal diagnosis: Vertebral compression fracture L2, osteopenia Interval history: 86-year-old with dementia status post fall several days ago. She was admitted from the ER for definitive management. Spoke with patient's daughter over the phone and presence of nursing staff. Would like to proceed with kyphoplasty in his can come into cosign for the procedure. Continues to have pain in the low back.. She complains of pain in her lower back. On examination she is afebrile vital signs stable. She is alert. She complains of low back pain. She has tenderness to palpation in the thoracolumbar region. She is neurovascularly intact with regard to her bilateral upper and lower extremities. MRI examination of the lumbar spine reveals multilevel degenerative changes an acute fracture of L1. There is also sacral insufficiency fractures nondisplaced. Objective Vital signs: Vital Signs Temp Pulse Resp BP Pulse Ox 03/21/17 06:49 97.6 F 109 16 123/73 93 03/21/17 03:54 98.1 F 94 18 163/91 95 03/20/17 23:49 98.3 F 110 20 160/81 94 03/20/17 20:46 97.9 F 96 17 167/82 94 03/20/17 15:31 98.8 F 107 16 159/75 93 03/20/17 11:35 98.9 F 98 16 165/72 93 Intake and Output 03/20/17 03/21/17 03/21/17 23:59 07:59 15:59 Intake Total 1000 / 1000 225 / 225 Output Total 375 / 375 350 / 350 Balance 625 / 625 -125 / -125 Intake: IV Fluids 1000 / 1000 0.9 % Sodium Chloride 1,000 ML 1000 / 1000 @ 75 mls/hr IVC .[id number] JAMES Rx #:[id number] Oral 225 / 225 Output: Catheter 375 / 375 350 / 350 Other: Weight 40.597 kg Patient Weight 03/21/17 23:59 Weight 40.597 kg - Labs CBC & BMP: 03/21/17 05:20 03/21/17 05:20 Labs: Abnormal lab results Neutrophils # 11.0 K/mcL (1.6-8.9) H 03/19/17 05:00 PT 12.6 Seconds (9.4-12.1) H 03/21/17 05:20 Potassium 2.9 mEq/L (3.5-4.5) L 03/21/17 05:20 Albumin 3.0 g/dL (3.5-5.0) L 03/21/17 05:20 Albumin/Globulin Ratio 1.0 (1.1-2.2) L 03/21/17 05:20 Urine Clarity Cloudy (Clear) A 03/19/17 04:28 Urine Protein 30 mg/dL (Neg-Trace) H 03/19/17 04:28 Urine Ketones 40 mg/dL (Negative) H 03/19/17 04:28 Urine Blood Large (Negative) H 03/19/17 04:28 Urine Bilirubin Small (Negative) H 03/19/17 04:28 Ur Leukocyte Esterase Small (Negative) H 03/19/17 04:28 Urine Microscopic WBC 30-50 per hpf (0-3) H 03/19/17 04:28 Urine Bacteria Many per hpf (None-Few) H 03/19/17 04:28 Consult Discharge Plan - Plan Referrals: Florence De, [Primary Care Provider] -
[2017-03-21] MEDS: cephALEXin 500 MG CAPSULE PO SCH ×2 (09:46→20:21)
[2017-03-21] MEDS: amLODIPine 5 MG TABLET PO SCH (09:46)
[2017-03-21] MEDS: Megestrol Acetate 400 MG/10 ML UDC PO SCH (09:46)
[2017-03-21] MEDS: CRANBERRY PO SCH (09:47)
[2017-03-21] MEDS: Cholecalciferol (D-3) 1,000 UNIT TABLET PO SCH (09:47)
--- NOTE | 2017-03-21 12:40 | Cardiology Consult Note ---
<Dimitrios Cuellar - Last Filed: 03/21/17 15:50> Date of Encounter: 03/21/17 Time of Encounter: 12:24 Assessment and Plan (1) Pre-operative cardiovascular examination Current Visit: Yes Status: Acute No cardiac complaints. Cardiac risk factors include HTN and advanced age. Poor functional capacity d/t de-conditioning. EKG shows SR with no acute ST changes. TTE ordered by primary team. TTE shows LVEF 65-70%. Somewhat hyperdynamic LV systolic function with HR low 100's. There is color-flow turbulence within the LV outflow tract - Doppler was not performed. Possible dynamic outflow gradient. There is evidence of mild diastolic dysfunction of the left ventricle. Normal right ventricular size and function. Mild aortic regurgitation. Mild tricuspid regurgitation. Mild pulmonary hypertension. Recommend IV fluid nikki-operatively. Likely ST due to pain and dehydration. Discussed with Dr. Perrin. No indication for further cardiac testing. Intermediate risk for surgery. Discussion w patient/family: The assessment and plan as outlined above was discussed with the patient and/or family members who expressed understanding and agreement. All questions were answered. Thank you for involving us in the care of your patient. Please call with any questions. History of Present Illness Consult date: 03/21/17 Requesting physician: Sabi Oleary Consult reason: Pre-operative risk assessment Chief complaint: Fall History of present illness: Ms. Mahoney is a 86 year old female with a history of HTN and dementia who presents after falling at home. She was found to have a L1 lumbar fracture. Cardiology consulted for pre-operative cardiovascular assessment. Patient confused at baseline. Daughter reports 24 hour care at home and video surveillance at night. Patient was seen to get out of bed> before help could get to her she already fell on the floor. She does not feel that she has loss of consciousness. She is unsteady on her feet. She falls frequently. She does occasionally c/o dizziness. She was brought to the hospital for severe back pain. Denies complaints of chest pain or SOB. No history of CAD. Stress test completed over 10 years ago. Past Med Surg Social Fam HX - Past Medical History Medical history: dementia, GERD, hypertension, other Psychiatric history: no psych history - Past Surgical History Surgical History: orthopedic, other - Social History Smoking Status: Former smoker Smokeless Tobacco Status: No Alcohol use: none Drug use: none - Family History Mother Living Status: Hx Family Cardiac Disorders: Yes Hx Family Respiratory Disorders: No Hx Family Cancer: No Hx Family GI Disorders: No Hx Family Endocrine Disorder: No Hx Family Neuromuscular Disorders: No Hx Family Neurologic Disorders: Yes (Stroke) Hx Family HEENT Disorders: No Hx Family Autoimmune Disorders: No Medications and Allergies Cranberry 400 mg PO DAILY 02/15/16 [History] Donepezil [Aricept] 10 mg PO HS 02/15/16 [History] Docusate [Colace] 100 mg PO BID 03/19/16 [History] Ergocalciferol (VITAMIN D2) [Vitamin D] 400 unit PO DAILY 03/19/16 [History] Paroxetine [Paxil] 20 mg PO DAILY 03/20/16 [History] Megestrol Acetate [Megace] 800 mg PO DAILY 10/18/16 [History] Polyethylene Glycol 3350 [Smoothlax] 17 gm PO DAILY 10/18/16 [History] Ondansetron ODT [Zofran ODT] 4 mg SL Q6HR PRN #14 tab.rapdis 03/18/17 [Rx] Acetaminophen [Tylenol] 650 mg PO Q6HR PRN 03/19/17 [History] LORazepam [Ativan] 0.5 mg PO Q12HR PRN 03/19/17 [History] Tramadol HCl [Ultram] 50 mg PO TID PRN 03/19/17 [History] 3 Allergy/AdvReac Type Severity Reaction Status Date / Time Sulfa (Sulfonamide Allergy See Verified 03/20/16 13:54 Antibiotics) Comments egg AdvReac Gastrointestinal Verified 03/20/16 13:54 Upset milk AdvReac Gastrointestinal Verified 03/20/16 13:54 Upset morphine AdvReac Confusion Verified 03/20/16 13:54 nitrofurantoin AdvReac Nausea Verified 03/20/16 13:54 [From Macrobid] Penicillins AdvReac Nausea Verified 03/20/16 13:54 All Systems Review: A 10-system review of systems was performed and is negative for pertinent findings except as documented above in the HPI. Physical Examination Vital Signs Temp Pulse Resp BP Pulse Ox 03/21/17 06:49 97.6 F 109 16 123/73 93 03/21/17 03:54 98.1 F 94 18 163/91 95 03/20/17 23:49 98.3 F 110 20 160/81 94 03/20/17 20:46 97.9 F 96 17 167/82 94 03/20/17 15:31 98.8 F 107 16 159/75 93 Intake and Output 03/20/17 03/21/17 03/21/17 23:59 07:59 15:59 Intake Total 1000 / 1000 225 / 225 100 / 100 Output Total 375 / 375 350 / 350 Balance 625 / 625 -125 / -125 100 / 100 Intake: IV Fluids 1000 / 1000 0.9 % Sodium Chloride 1,000 ML 1000 / 1000 @ 75 mls/hr IVC .[id number] JAMES Rx #:[id number] Oral 225 / 225 100 / 100 Output: Catheter 375 / 375 350 / 350 Other: Meal Breakfast Percent of Meal Consumed 10% Weight 40.597 kg Patient Weight 03/21/17 23:59 Weight 40.597 kg General: Conversant, No Apparent Distress, Other (confused, frail elderly female. ) HEENT: Atraumatic, Normocephaly, Mucus Membranes Moist Neck: No JVD, Normal carotid pulses Cardiac: Reg Rate and Rhythm, Normal S1 and S2, No Murmur, Other (ST on EKG) Lungs: Normal Breath Sounds, No Wheeze, Rales, Rhonchi Neuro: Alert and responsive, No focal deficits noted Abdomen: Soft, Non-Tender Skin: No rashes noted on visualized skin Musculoskeletal: No Chest Wall Tenderness Extremities: No Clubbing, No Cyanosis, No Edema, Normal Pulses Results 03/21/17 05:20 03/21/17 05:20 Lab Results 03/21/17 03/21/17 03/21/17 05:20 05:20 05:20 WBC 8.3 Hgb 12.6 Hct 38.9 Plt Count 255 INR 1.2 Sodium 141 Potassium 2.9 L Chloride 107 Carbon Dioxide 22 BUN 7 Creatinine 0.67 Glucose 75 Calcium 8.6 Total Bilirubin 0.8 AST 17 ALT 6 Alkaline Phosphatase [address] 03/18/17 22:02 IMPRESSION: No acute abnormality of the cervical spine. Remote compression fracture of T2. D/ / Kimo Kate MD / Kimo Kate MD Interpreting Provider: Kimo Kate MD Head CT 03/18/17 22:02 IMPRESSION: No acute intracranial abnormality. D/ / Kimo Kate MD / Kimo Kate MD Interpreting Provider: Kimo Kate MD Pelvis X-Ray 03/18/17 22:02 IMPRESSION: Multiple sites of remote fracture injury. No acute fracture or dislocation identified D/ / Kendell Mckenzie MD / Kendell Mckenzie MD Interpreting Provider: Kendell Mckenzie MD Lumbar Spine X-Ray 03/18/17 22:03 IMPRESSION: Indeterminate age L1 compression fracture is noted which may be acute given the history. D/ / Kendell Mckenzie MD / Kendell Mckenzie MD Interpreting Provider: Kendell Mckenzie MD Lumbar Spine MRI 03/20/17 11:39 IMPRESSION: 1. There is an acute L2 burst fracture with approximately 20% loss of vertebral body height. 2. There are suspected subacute/chronic bilateral sacral insufficiency fractures extending through the S2 vertebral body with associated cortical deformity. These are new compared to a CT of the left hip on February 15, 2016. 3. No critical central spinal canal stenosis. D/ / 03/20/2017 15:58:35 Harrison Beckman MD / sol Interpreting Provider: Harrison Beckman MD Echocardiogram 03/21/17 09:42 Impressions: LVEF 65-70%. Somewhat hyperdynamic LV systolic function with HR low 100's. There is color-flow turbulence within the LV outflow tract - Doppler was not performed. Possible dynamic outflow gradient. There is evidence of mild diastolic dysfunction of the left ventricle. Normal right ventricular size and function. Mild aortic regurgitation. Mild tricuspid regurgitation. Mild pulmonary hypertension. - Imaging and Cardiology Echo: pending - EKG Interpretation EKG results cardiology: personally reviewed (New ekg ordered d/t poor EKG quality) Consult Discharge Plan - Plan Referrals: Florence De, [Primary Care Provider] - <Mainor Perrin - Last Filed: 03/21/17 18:15> Date of Encounter: 03/21/17 Assessment and Plan Discussion w patient/family: The assessment and plan as outlined above was discussed with the patient and/or family members who expressed understanding and agreement. All questions were answered. Thank you for involving us in the care of your patient. Please call with any questions. History of Present Illness History of present illness: Ms. Mahoney is a 86 year old female All Systems Review: A 10-system review of systems was performed and is negative for pertinent findings except as documented above in the HPI. Results 03/21/17 05:20 03/21/17 05:20 - Attending Attestation PT seen and examined independently, discussed with pts daughter (POA) at bedside , essentially agree with documented findings, my evaluation as follows: CC. Back pain HPI: Pt is not a reliable historian, hx obtained from daughter and medical record. Pt attempted to walk by herself, fell getting out of bed, landed on the floor, immediately complaining of severe back pain. She has hx frequent falls, does not follow commands due to dementia. She requires full service supervisor 24 hour care. Evaluation in the ER revealed an L1 fracture, we are asked to evaluate pt for preoperative risk stratification. She is currently resting comfortably in bed, does not respond to questions. PE: Agree with findings as listed IMp/Plan 1. Abnormal EKG with mild sinus tachycardia and poor R wave progression, can not rule out old ant RI, however echo shows hyperdynamic anterior wall motion, hyperdynamic LV, no subsegmental wall motion abnormalities. Pt is not a candidate for invasive cardiac strategy, so no benefit of further evaluation. Pt is at low cardiovascular risk for plannned procedure. 2. Dementia: slowly progressive despite medical tx, continue supportive care 3. Hypertension: adequate control on current meds. Pts daughter at bedside reports pt is full code, however chart lists DNR, recommend clarify and codify pts and families wishes for code status.
[2017-03-21] MEDS: *HR* LORazepam 0.5 MG TABLET PO PRN (14:10)
--- NOTE | 2017-03-21 15:26 | Internal Med Progress Note ---
Date of Encounter: 03/21/17 Time of Encounter: 15:23 - Assessment and plan (1) Compression fracture of L1 lumbar vertebra Current Visit: Yes Status: Acute Assessment and plan: Secondary to fall on day of presentation. L-spine MRI with acute L2 burst fracture and subacute/chronic bilateral sacral insufficiency fractures. Cont pain control, fall precautions, PT/OT evaluation when able. Kyphoplasty of L1 planned for 03/21. Postoperative management including activity, pain control, DVT prophylaxis per Ortho Qualifiers: Encounter type: initial encounter Fracture type: closed Qualified Code(s) : S32.010A - Wedge compression fracture of first lumbar vertebra, initial encounter for closed fracture (2) HTN (hypertension) Current Visit: No Status: Chronic Assessment and plan: BP elevated but not on antihypertensives at home. Amlodine added; BP variable but acceptable. Monitor BP and titrate PRN Qualifiers: Hypertension type: essential hypertension Qualified Code(s): I10 - Essential (primary) hypertension (3) Bacteriuria, asymptomatic Current Visit: Yes Status: Acute Assessment and plan: WBC 12K. Cont treating for asymptomatic bacteriuria with advanced age. Urine cx pending (4) Dementia Current Visit: No Status: Chronic Assessment and plan: per hx. Mentation appears at baseline. Cont home Aricept. Supportive care Qualifiers: Dementia type: Alzheimer's disease Alzheimer's disease onset: unspecified onset Dementia behavioral disturbance: with behavioral disturbance Qualified Code(s): G30.8 - Other Alzheimer's disease; F02.81 - Dementia in other diseases classified elsewhere with behavioral disturbance (5) DVT prophylaxis Current Visit: Yes Status: Acute Assessment and plan: SCDs. Postop pharmacological prophylaxis per Ortho - Subjective Interval history: Seen and examined at bedside; resting in bed with both eyes closed. Easy to arouse. Patient alert to self only, unable to provide details. She does say she is in pain. Daughter at bedside and updated extensively. Plan for surgical intervention this evening. Changed to inpatient status. Will need SNF at discharge. - Constitutional Vitals: Temp Pulse Resp BP Pulse Ox 98.2 F 109 16 153/72 95 03/21/17 15:19 03/21/17 15:19 03/21/17 15:19 03/21/17 15:19 03/21/17 15:19 General appearance: Present: A&O X 1, no acute distress, underweight - Head Head exam: Present: atraumatic, normocephalic - Eye Eye exam: Present: PERRL, conjuntiva pink, sclera anicteric Pupils: Present: PERRL - Neck Neck exam general surgery: Present: supple, trachea midline. Absent: lymphadenopathy - Respiratory Respiratory exam: Present: CTAB. Absent: accessory muscle use, rales, rhonchi, wheezes - Cardiovascular Cardiovascular exam: Present: RRR, +S1, +S2. Absent: diastolic murmur, gallop, rubs, systolic murmur - GI/Abdominal GI/Abdominal exam: Present: normal bowel sounds, soft, no peritoneal signs. Absent: distended, tenderness - Extremities Exam Extremities exam: Present: warm, radial pulses palpable and symmetrical. Absent : calf tenderness, cyanotic, pedal edema - Neurological Exam Neurological exam: Present: CN II-XII intact, oriented X3, no focal deficits. Absent: pronater drift, facial droop, speech deficit - Skin Skin exam: Present: dry, intact Internal Medicine: Result - Labs CBC & Chem 7: 03/21/17 05:20 03/21/17 05:20 Labs: Short CBC 03/21/17 Range/Units 05:20 WBC 8.3 (4.3-11.1) K/mcL Hgb 12.6 (11.5-15.4) g/dL Hct 38.9 (35.3-44.9) % Plt Count 255 (140-400) K/mcL BMP 03/21/17 05:20 Sodium 141 Potassium 2.9 L Chloride 107 Carbon Dioxide 22 BUN 7 Creatinine 0.67 Glucose 75 Calcium 8.6 Liver Function 03/21/17 Range/Units 05:20 Total Bilirubin 0.8 (0.2-1.2) mg/dL AST 17 (5-34) Units/L ALT 6 (0-55) Units/L Alkaline Phosphatase 70 (38-126) Units/L Albumin 3.0 L (3.5-5.0) g/dL - ABG Interpretation ABG results: PT/INR, D-dimer PT 12.6 Seconds (9.4-12.1) H 03/21/17 05:20 - Impressions Impressions Lumbar Spine MRI 03/20/17 11:39 IMPRESSION: 1. There is an acute L2 burst fracture with approximately 20% loss of vertebral body height. 2. There are suspected subacute/chronic bilateral sacral insufficiency fractures extending through the S2 vertebral body with associated cortical deformity. These are new compared to a CT of the left hip on February 15, 2016. 3. No critical central spinal canal stenosis. D/ / 03/20/2017 15:58:35 Harrison Beckman MD / sol Interpreting Provider: Harrison Beckman MD Consult Discharge Plan - Plan Referrals: Florence De DO [Primary Care Provider] -
[2017-03-22] MEDS: *HR* Heparin 5,000 UNIT/ML VIAL SQ SCH (05:17)
[2017-03-22 08:00] LABS: Hemoglobin 11.5 g/dL (11.5-15.4); Mean Corpuscular HGB Conc 31.9 g/dL (31.6-35.5); Mean Corpuscular Hemoglobin 29.3 pg (28.0-33.3); Mean Corpuscular Volume 91.8 fL (83.0-100.0); Mean Platelet Volume 11.1 fL (9.4-12.4); Platelet Count 236 K/mcL (140-400); Red Blood Count 3.92 M/mcL (3.82-4.97); Red Cell Distribution Width 13.6 % (11.5-14.5)
[2017-03-22 08:16] LABS: Alanine Aminotransferase 7 Units/L (0-55); Alkaline Phosphatase 65 Units/L (38-126); Aspartate Amino Transferase 19 Units/L (5-34); BUN/Creatinine Ratio 8 (6-26); Bilirubin,Total 0.7 mg/dL (0.2-1.2); Blood Urea Nitrogen 6 mg/dL (7-20); Calcium 8.7 mg/dL (8.6-10.8); Carbon Dioxide 14 mEq/L (19-29); Chloride 111 mEq/L (98-109); Glucose 81 mg/dL (70-99); Osmolality,Calculated 287 (280-300); Potassium 3.6 mEq/L (3.5-4.5); Sodium 140 mEq/L (136-145); eGFR For African Americans > 60 (> 60); eGFR For Non-African Americans > 60 (> 60)
[2017-03-22] MEDS: Megestrol Acetate 400 MG/10 ML UDC PO SCH (08:24)
[2017-03-22] MEDS: CRANBERRY PO SCH (08:24)
[2017-03-22] MEDS: Cholecalciferol (D-3) 1,000 UNIT TABLET PO SCH (08:25)
[2017-03-22] MEDS: cephALEXin 500 MG CAPSULE PO SCH ×2 (08:38→08:43)
[2017-03-22] MEDS: amLODIPine 5 MG TABLET PO SCH (08:38)
--- NOTE | 2017-03-22 09:39 | Anesthesia Evaluation PreOp ---
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: Other (mild dementia) Other Medical History: GERD Anesthesia History: No Prior Anesthetic Complications, Past Anesthesia ( orthopedic sx) : No Alcohol Use: none Drug use: none Medications and Allergies Cranberry 400 mg PO DAILY 02/15/16 [History] Donepezil [Aricept] 10 mg PO HS 02/15/16 [History] Docusate [Colace] 100 mg PO BID 03/19/16 [History] Ergocalciferol (VITAMIN D2) [Vitamin D] 400 unit PO DAILY 03/19/16 [History] Paroxetine [Paxil] 20 mg PO DAILY 03/20/16 [History] Megestrol Acetate [Megace] 800 mg PO DAILY 10/18/16 [History] Polyethylene Glycol 3350 [Smoothlax] 17 gm PO DAILY 10/18/16 [History] Ondansetron ODT [Zofran ODT] 4 mg SL Q6HR PRN #14 tab.rapdis 03/18/17 [Rx] Acetaminophen [Tylenol] 650 mg PO Q6HR PRN 03/19/17 [History] LORazepam [Ativan] 0.5 mg PO Q12HR PRN 03/19/17 [History] Tramadol HCl [Ultram] 50 mg PO TID PRN 03/19/17 [History] 3 Allergy/AdvReac Type Severity Reaction Status Date / Time Sulfa (Sulfonamide Allergy See Verified 03/20/16 13:54 Antibiotics) Comments egg AdvReac Gastrointestinal Verified 03/20/16 13:54 Upset milk AdvReac Gastrointestinal Verified 03/20/16 13:54 Upset morphine AdvReac Confusion Verified 03/20/16 13:54 nitrofurantoin AdvReac Nausea Verified 03/20/16 13:54 [From Macrobid] Penicillins AdvReac Nausea Verified 03/20/16 13:54 - Meds/Allergy Pre-op Review Medications Reviewed: Yes Allergies Reviewed: Yes Beta Blockers on Current Med List: No Anesthesia Results - Labs 03/22/17 07:53 03/22/17 07:53 03/21/17 Echo VEF 65-70%. Somewhat hyperdynamic LV systolic function with HR low 100's. There is color-flow turbulence within the LV outflow tract - Doppler was not performed. Possible dynamic outflow gradient. There is evidence of mild diastolic dysfunction of the left ventricle. Normal right ventricular size and function. Mild aortic regurgitation. Mild tricuspid regurgitation. Mild pulmonary hypertension. - Imaging EKG: report reviewed (Sr, Mod ST depression) Anesthesia Exam O2 Sat Weight 43.1 kg O2 Sat by Pulse Oximetry 95 O2 Sat by Pulse Oximetry 94 O2 Sat by Pulse Oximetry 93 O2 Sat by Pulse Oximetry 94 O2 Sat by Pulse Oximetry 95 Vital Signs Temp Pulse Resp BP Pulse Ox 97.6 F 75 16 191/93 99 03/18/17 21:54 03/18/17 21:54 03/18/17 21:54 03/18/17 21:54 03/18/17 21:54 Vital Signs/O2 Sat, Most Current Temp Pulse Resp BP Pulse Ox 98.5 F 105 16 148/63 95 03/22/17 06:30 03/22/17 06:30 03/22/17 06:30 03/22/17 06:30 03/22/17 06:30 - HEENT Pupil (Motor): Pupils equal, EOMI Mallampati: III Teeth: Normal Denture Type: Upper: Partial Oral Opening: Greater than 3 - BROKE HANDLER LOC: Confused BROKE HANDLER Motor: Normal RUE, Normal LUE, Normal RLE, Normal LLE, Normal Face BROKE HANDLER Sensory: Normal: RUE, LUE, RLE, LLE, Face - Cardiac Rhythm: Regular Murmur: None JVD: No Carotid Bruit: No - Pulmonary Breath Sounds: bilateral Clear Respiratory Effort: Symmetrical Anesthesia Assess/Plan ASA Score: 3 Modified [place] Scale for Level of Consciousness: Cooperative, oriented, and tranquil Anesthetic Plan: General Autologous Blood: Yes Monitoring Plan: Standard Monitors Recovery Plan: PACU
[2017-03-22] MEDS: 0.9 % Sodium Chloride 1,000 ML IVC SCH (10:28)
[2017-03-22] MEDS ORDERED: *HR* FentaNYL (PF) 100 MCG/2 ML VIAL ONE (10:58)
[2017-03-22] MEDS ORDERED: Ondansetron 4 MG/2 ML VIAL ONE (10:58)
[2017-03-22] MEDS ORDERED: Dexamethasone 4 MG/ML VIAL ONE (10:58)
[2017-03-22] MEDS ORDERED: Lidocaine -MPF 2% 2 ML VIAL ONE (10:58)
[2017-03-22] MEDS ORDERED: *HR* Propofol 200 MG/20 ML VIAL IVP ONE (10:58)
[2017-03-22] MEDS ORDERED: *HR* Succinylcholine 200 MG/10 ML VIAL IVP ONE (11:01)
[2017-03-22] MEDS ORDERED: *HR* Phenylephrine 10 MG/ML VIAL ONE (12:52)
--- NOTE | 2017-03-22 13:23 | Orthopedic Operative Note ---
Date of procedure: 03/22/17 Pre-op diagnosis: Osteopenia, vertebral compression fracture Post-op diagnosis: same Operation/Findings: Kyphoplasty L1: The patient was brought to the operative theater where successful endotracheal anesthesia was performed. The patient was given antibiotics prior to the start of the procedure. Compression boots and stockings were used for deep vein thrombosis. Patient was then turned prone on a well-padded [place] table. The back was prepped and draped in the usual sterile fashion. 2 C-arm fluorographic devices were brought into position such that simultaneous AP and lateral views centered over the involved L1 vertebral body could be performed. A stab incision was made over the superior-lateral aspect of the left L1 pedicle. We introduced a Jamshidi needle into the vertebral body via a transpedicular route. We took biplanar images of the L1 vertebral body using fluorography. The needle was found to be in appropriate position and within the confines of the L1 vertebral body. We then introduced a biopsy trocar and obtained a biopsy specimen of the L1 vertebral body. This was sent for pathologic evaluation. We then removed the biopsy trocar and introduced a Kyphon balloon. The balloon was insufflated to approximately 4mL volume and subsequently deflated. The balloon was seen to expand within the confines of the L1 vertebral body on biplanar fluorographic views. The balloon was then removed. We then inserted cement trochars and sequentially placed bone cement within the confines of the L1 vertebral body. We took intermittent fluorographic views which confirmed satisfactory placement of the cement. After completion of the cementation process, the trocar was removed. We took final AP and lateral fluorographic views. We then closed the stab incision with 2-0 nylon suture. A Band-Aid was placed over the wound. The patient was turned supine on a hospital bed and extubated. All sponge instrument and needle counts were correct at the end of the procedure. The patient tolerated the procedure well without complications. Anesthesia: GETA Surgeon: Kimo Farzier Jr Estimated blood loss (cc): 4 Condition: stable Disposition: PACU
--- NOTE | 2017-03-22 14:07 | Anesthesia Evaluation Post Op ---
Date of Encounter: 03/22/17 Time of Encounter: 14:05 - Vital Signs Vital Signs: Selected Entries 03/22/17 13:35 03/22/17 13:55 Temperature 97.9 F Pulse Rate 95 Respiratory Rate 12 Blood Pressure 149/70 O2 Sat by Pulse Oximetry 100 Oxygen Flow Rate (LPM) 2 - Lungs Lungs: Clear Ascult./Percussion - Airway Airway: Non-obstructed - Cardiovascular Regular Rate - Mental Status Mental Status: Alert & Oriented, Answers Appropriately - Pain Pain Scale: 0 Pain Scale used: Numeric (1 - 10) - Nausea Vomiting Nausea Vomiting: Not Present - Hydration Hydration: Ice chips, Augirre catheter - Discharge PostOp Status: Transfer Patient to floor
[2017-03-22] MEDS ORDERED: *HR* OxyCODONE Immed Rel 5 MG TABLET PO PRN (14:26)
[2017-03-22] MEDS ORDERED: Ondansetron 4 MG/2 ML VIAL IVP PRN (14:26)
[2017-03-22] MEDS ORDERED: *HR* Morphine 2 MG/ML SYRINGE IVP PRN (14:26)
[2017-03-22] MEDS: Ringers Solution, Lactated 1,000 ML IVC SCH (15:20)
[2017-03-22] MEDS ORDERED: ceFAZolin 2,000 MG in D5% in Water 100 ML IVPB SCH (16:00)
--- NOTE | 2017-03-22 17:16 | Internal Med Progress Note ---
Date of Encounter: 03/22/17 Time of Encounter: 17:14 - Assessment and plan (1) Compression fracture of L1 lumbar vertebra Current Visit: Yes Status: Acute Assessment and plan: Secondary to fall on day of presentation. L-spine MRI with acute L2 burst fracture and subacute/chronic bilateral sacral insufficiency fractures. Cont pain control, fall precautions, PT/OT evaluation when able. S/p L1 kyphoplasty on 03/22/[address] Arora. Judicious pain management postoperative. Ortho following Qualifiers: Encounter type: initial encounter Fracture type: closed Qualified Code(s) : S32.010A - Wedge compression fracture of first lumbar vertebra, initial encounter for closed fracture (2) Hypokalemia Current Visit: Yes Status: Acute Assessment and plan: K 2.9 on 03/21; normalized with replacement. Intermittently monitor repeat CMP (3) HTN (hypertension) Current Visit: No Status: Chronic Assessment and plan: BP elevated but not on antihypertensives at home. Amlodine added; BP variable but acceptable. Monitor BP and titrate PRN Qualifiers: Hypertension type: essential hypertension Qualified Code(s): I10 - Essential (primary) hypertension (4) Bacteriuria, asymptomatic Current Visit: Yes Status: Acute Assessment and plan: WBC 12K. Cont treating for asymptomatic bacteriuria with advanced age. Completed 3 days Keflex (5) Dementia Current Visit: No Status: Chronic Assessment and plan: per hx. Mentation appears at baseline. Cont home Aricept. Supportive care Qualifiers: Dementia type: Alzheimer's disease Alzheimer's disease onset: unspecified onset Dementia behavioral disturbance: with behavioral disturbance Qualified Code(s): G30.8 - Other Alzheimer's disease; F02.81 - Dementia in other diseases classified elsewhere with behavioral disturbance (6) DVT prophylaxis Current Visit: Yes Status: Acute Assessment and plan: SCDs. Pharmacological prophylaxis when okay per Ortho - Subjective Interval history: Seen and examined at bedside; resting in bed with both eyes closed. She will briefly open eyes but does not participate in exam. Daughter updated at bedside. Will likely need SNF at discharge - Constitutional Vitals: Temp Pulse Resp BP Pulse Ox 97.9 F 111 16 127/77 98 03/22/17 16:23 03/22/17 16:23 03/22/17 16:23 03/22/17 16:23 03/22/17 16:23 General appearance: Present: cachectic, A&O X 1, no acute distress, underweight Internal Medicine: Result - Labs CBC & Chem 7: 03/22/17 07:53 03/22/17 07:53 Labs: Short CBC 03/22/17 Range/Units 07:53 WBC 8.5 (4.3-11.1) K/mcL Hgb 11.5 (11.5-15.4) g/dL Hct 36.0 (35.3-44.9) % Plt Count 236 (140-400) K/mcL BMP 03/22/17 07:53 Sodium 140 Potassium 3.6 Chloride 111 H Carbon Dioxide 14 L BUN 6 L Creatinine 0.71 Glucose 81 Calcium 8.7 Liver Function 03/22/17 Range/Units 07:53 Total Bilirubin 0.7 (0.2-1.2) mg/dL AST 19 (5-34) Units/L ALT 7 (0-55) Units/L Alkaline Phosphatase 65 (38-126) Units/L Albumin 3.0 L (3.5-5.0) g/dL - ABG Interpretation ABG results: PT/INR, D-dimer PT 12.6 Seconds (9.4-12.1) H 03/21/17 05:20 - Impressions Impressions Fluoroscopy 03/22/17 00:00 IMPRESSION: Intraprocedural fluoroscopic spot images as above. See separate procedure report for more information. D/ / Harrison Metz MD / Harrison Metz MD Interpreting Provider: Harrison Metz MD Xray Preliminary Report 03/22/17 00:00 IMPRESSION: Intraprocedural fluoroscopic spot images as above. See separate procedure report for more information. D/ / 03/22/2017 13:56:47 Leonidas Romero MD / nicki Interpreting Provider: Leonidas Romero MD - VTE Documentation of Mechanical Device: Intermittent pneumatic compression device Consult Discharge Plan - Plan Referrals: Florence De DO [Primary Care Provider] -
[2017-03-22] MEDS ORDERED: *HR* Heparin 5,000 UNIT/ML VIAL SQ SCH (18:00)
--- NOTE | 2017-03-22 19:34 | Electrocardiograph Report ---
[place] [id number] Test Date: 2017-03-21 Pat Name: Rachel Mahoney Department: 114 Room: [facility] Gender: F [employer] Supervisor: JJG : [id number] Requested By: Dimitrios Cuellar Order Number: [id number] Reading MD: Wing Fink MD Measurements Intervals Brewer Rate: 100 P: 66 DE: 141 QRS: -3 QRSD: 70 T: 74 QT: 344 QTc: 401 Interpretive Statements SINUS TACHYCARDIA INDETERMINATE AXIS LOW QRS VOLTAGE Electronically Signed On 03-22-2017 19:33:01 EDT by Wing Fink MD
[2017-03-22] MEDS: Clindamycin 600 MG/50 ML 600 MG/50 ML IV.SOLN IVPB SCH (22:03)
[2017-03-23] MEDS: Ringers Solution, Lactated 1,000 ML IVC SCH (03:19)
[2017-03-23 05:29] LABS: Hematocrit 32.9 % (35.3-44.9); Hemoglobin 10.4 g/dL (11.5-15.4); Mean Corpuscular HGB Conc 31.6 g/dL (31.6-35.5); Mean Corpuscular Hemoglobin 29.1 pg (28.0-33.3); Mean Corpuscular Volume 91.9 fL (83.0-100.0); Mean Platelet Volume 11.3 fL (9.4-12.4); Platelet Count 253 K/mcL (140-400); Red Blood Count 3.58 M/mcL (3.82-4.97); Red Cell Distribution Width 13.6 % (11.5-14.5)
[2017-03-23 05:49] LABS: Albumin 2.6 g/dL (3.5-5.0); Alkaline Phosphatase 56 Units/L (38-126); Aspartate Amino Transferase 22 Units/L (5-34); BUN/Creatinine Ratio 9 (6-26); Bilirubin,Total 0.5 mg/dL (0.2-1.2); Blood Urea Nitrogen 7 mg/dL (7-20); Calcium 8.4 mg/dL (8.6-10.8); Carbon Dioxide 18 mEq/L (19-29); Chloride 109 mEq/L (98-109); Globulin 2.7 g/dL (2.4-3.5); Glucose 90 mg/dL (70-99); Osmolality,Calculated 286 (280-300); Potassium 4.1 mEq/L (3.5-4.5); Sodium 139 mEq/L (136-145); Total Protein 5.3 g/dL (6.0-8.3); eGFR For African Americans > 60 (> 60); eGFR For Non-African Americans > 60 (> 60)
[2017-03-23] MEDS: Clindamycin 600 MG/50 ML 600 MG/50 ML IV.SOLN IVPB SCH (05:57)
[2017-03-23 05:58] LABS: Alanine Aminotransferase < 6 Units/L (0-55)
[2017-03-23] MEDS: *HR* Heparin 5,000 UNIT/ML VIAL SQ SCH ×2 (05:59→17:34)
[2017-03-23] MEDS: amLODIPine 5 MG TABLET PO SCH (08:22)
[2017-03-23] MEDS: Cholecalciferol (D-3) 1,000 UNIT TABLET PO SCH (08:22)
[2017-03-23] MEDS: Megestrol Acetate 400 MG/10 ML UDC PO SCH (08:22)
[2017-03-23] MEDS: Acetaminophen 325 MG TABLET PO PRN ×2 (12:17→20:46)
--- NOTE | 2017-03-23 14:59 | Spine Progress Note ---
Date of Encounter: 03/23/17 Time of Encounter: 14:57 - Assessment and Plan (1) Osteopenia Current Visit: Yes Status: Chronic Qualifiers: Osteopenia location: spine Qualified Code(s): M85.88 - Other specified disorders of bone density and structure, other site (2) Vertebral compression fracture Current Visit: Yes Status: Acute Marais examination confirmed an acute L1 fracture. It also confirmed sacral insufficiency fractures. In the interest of pain control and avoidance of chronic narcotic treatment I find it reasonable to consider a kyphoplasty L1. Risk benefits possible competitions and alternatives were discussed with the patient and daughter. The daughters, come in for consent and they would like to proceed. She understands that the patient will need medical optimization and clearance prior to any surgical intervention. Qualifiers: Encounter type: initial encounter Qualified Code(s): M48.50XA - Collapsed vertebra, not elsewhere classified, site unspecified, initial encounter for fracture (3) Sacral insufficiency fracture Current Visit: Yes Status: Acute Qualifiers: Encounter type: initial encounter Qualified Code(s): M84.48XA - Pathological fracture, other site, initial encounter for fracture Subjective Principal diagnosis: Vertebral compression fracture L2, osteopenia Interval history: The patient is without complaints. Poor historian secondary to dementia Afebrile vital signs are stable. Incision is clean dry and intact. Neurovascularly intact with regard to bilateral lower extremities. Assessment :stable. Plan mobilize ,continue analgesics, discharge planning. Objective Vital signs: Vital Signs Temp Pulse Resp BP Pulse Ox 03/23/17 11:33 97.9 F 95 14 145/78 94 03/23/17 06:56 97.4 F L 102 16 117/70 92 03/23/17 04:20 99.0 F 94 16 131/68 96 03/23/17 00:38 97.4 F L 100 16 133/69 96 03/22/17 20:00 98.1 F 101 16 133/70 94 03/22/17 17:49 98.1 F 107 16 114/62 99 03/22/17 16:23 97.9 F 111 16 127/77 98 03/22/17 15:21 98.0 F 103 16 136/69 97 03/22/17 15:12 99.0 F 97 16 147/69 97 Intake and Output 03/22/17 03/23/17 03/23/17 23:59 07:59 15:59 Intake Total 50 / 50 1250 / 1250 5 / 5 Output Total 350 / 350 325 / 325 Balance -300 / -300 925 / 925 5 / 5 Intake: IV Fluids 50 / 50 1000 / 1000 Lactated Ringers 1,000 ML @ 100 1000 / 1000 mls/hr IVC .Q10H JAMES Rx#: [id number] Cleocin Premix 600 MG/50 ML 600 50 / 50 mg In 50 ml @ 50 mls/hr IVPB Q8H JAMES Rx#:[id number] Oral 250 / 250 5 / 5 Output: Urine 350 / 350 Catheter 325 / 325 Other: Meal Breakfast Percent of Meal Consumed 0% Stool Size Large Small Stool Consistency soft loose liquid Stool Color Brown Brown # Bowel Movements 1 Weight 43.681 kg Patient Weight 03/23/17 23:59 Weight 43.681 kg - Labs CBC & BMP: 03/23/17 05:08 03/23/17 05:08 Labs: Abnormal lab results RBC 3.58 M/mcL (3.82-4.97) L 03/23/17 05:08 Hgb 10.4 g/dL (11.5-15.4) L 03/23/17 05:08 Hct 32.9 % (35.3-44.9) L 03/23/17 05:08 Neutrophils # 11.0 K/mcL (1.6-8.9) H 03/19/17 05:00 PT 12.6 Seconds (9.4-12.1) H 03/21/17 05:20 Carbon Dioxide 18 mEq/L (19-29) L 03/23/17 05:08 Calcium 8.4 mg/dL (8.6-10.8) L 03/23/17 05:08 Serum Total Protein 5.3 g/dL (6.0-8.3) L 03/23/17 05:08 Albumin 2.6 g/dL (3.5-5.0) L 03/23/17 05:08 Albumin/Globulin Ratio 1.0 (1.1-2.2) L 03/23/17 05:08 Urine Clarity Cloudy (Clear) A 03/19/17 04:28 Urine Protein 30 mg/dL (Neg-Trace) H 03/19/17 04:28 Urine Ketones 40 mg/dL (Negative) H 03/19/17 04:28 Urine Blood Large (Negative) H 03/19/17 04:28 Urine Bilirubin Small (Negative) H 03/19/17 04:28 Ur Leukocyte Esterase Small (Negative) H 03/19/17 04:28 Urine Microscopic WBC 30-50 per hpf (0-3) H 03/19/17 04:28 Urine Bacteria Many per hpf (None-Few) H 03/19/17 04:28 Consult Discharge Plan - Plan Referrals: Florence De DO [Primary Care Provider] -
--- NOTE | 2017-03-23 15:03 | Internal Med Progress Note ---
Date of Encounter: 03/23/17 Time of Encounter: 15:00 - Assessment and plan (1) Dementia Current Visit: No Status: Chronic Assessment and plan: per hx. Mentation appears at baseline. Cont home Aricept. Supportive care Qualifiers: Dementia type: Alzheimer's disease Alzheimer's disease onset: unspecified onset Dementia behavioral disturbance: with behavioral disturbance Qualified Code(s): G30.8 - Other Alzheimer's disease; F02.81 - Dementia in other diseases classified elsewhere with behavioral disturbance (2) Compression fracture of L1 lumbar vertebra Current Visit: Yes Status: Acute Assessment and plan: Secondary to fall on day of presentation. L-spine MRI with acute L2 burst fracture and subacute/chronic bilateral sacral insufficiency fractures. Cont pain control, fall precautions, PT/OT evaluation when able. S/p L1 kyphoplasty on 03/22/[address] Arora. Discharge in the morning if stable Qualifiers: Encounter type: initial encounter Fracture type: closed Qualified Code(s) : S32.010A - Wedge compression fracture of first lumbar vertebra, initial encounter for closed fracture (3) GERD (gastroesophageal reflux disease) Current Visit: No Status: Chronic Qualifiers: Esophagitis presence: without esophagitis Qualified Code(s): K21.9 - Gastro -esophageal reflux disease without esophagitis (4) HTN (hypertension) Current Visit: No Status: Chronic Assessment and plan: BP elevated but not on antihypertensives at home. Amlodine added; BP variable but acceptable. Monitor BP and titrate PRN Qualifiers: Hypertension type: essential hypertension Qualified Code(s): I10 - Essential (primary) hypertension (5) Bacteriuria, asymptomatic Current Visit: Yes Status: Acute Assessment and plan: WBC 12K. Cont treating for asymptomatic bacteriuria with advanced age. Completed 3 days Keflex (6) Hypokalemia Current Visit: Yes Status: Acute Assessment and plan: K 2.9 on 03/21; normalized with replacement. Intermittently monitor repeat CMP - Subjective Interval history: the patient has seere dementia, oriented in person only, denies pain , seems to be comfortable. Unable to complete review of systems because of her dementia - Constitutional Vitals: Temp Pulse Resp BP Pulse Ox 97.9 F 95 14 145/78 94 03/23/17 11:33 03/23/17 11:33 03/23/17 11:33 03/23/17 11:33 03/23/17 11:33 General appearance: Present: cachectic, A&O X 1, no acute distress, underweight - Head Head exam: Present: atraumatic, normocephalic - Eye Eye exam: Present: PERRL, conjuntiva pink, sclera anicteric Pupils: Present: PERRL - Neck Neck exam general surgery: Present: supple, trachea midline. Absent: lymphadenopathy - Respiratory Respiratory exam: Present: CTAB. Absent: accessory muscle use, rales, rhonchi, wheezes - Cardiovascular Cardiovascular exam: Present: RRR, +S1, +S2. Absent: diastolic murmur, gallop, rubs, systolic murmur - GI/Abdominal GI/Abdominal exam: Present: normal bowel sounds, soft, no peritoneal signs. Absent: distended, tenderness - Extremities Exam Extremities exam: Present: warm, radial pulses palpable and symmetrical. Absent : calf tenderness, cyanotic, pedal edema - Neurological Exam Neurological exam: Present: CN II-XII intact, no focal deficits. Absent: oriented X3, pronater drift, facial droop, speech deficit Additional comments: Kyphosis evidenced - Skin Skin exam: Present: dry, intact Internal Medicine: Result - Labs CBC & Chem 7: 03/23/17 05:08 03/23/17 05:08 Labs: Short CBC 03/23/17 Range/Units 05:08 WBC 8.3 (4.3-11.1) K/mcL Hgb 10.4 L (11.5-15.4) g/dL Hct 32.9 L (35.3-44.9) % Plt Count 253 (140-400) K/mcL BMP 03/23/17 05:08 Sodium 139 Potassium 4.1 Chloride 109 Carbon Dioxide 18 L BUN 7 Creatinine 0.77 Glucose 90 Calcium 8.4 L Liver Function 03/23/17 Range/Units 05:08 Total Bilirubin 0.5 (0.2-1.2) mg/dL AST 22 (5-34) Units/L ALT < 6 (0-55) Units/L Alkaline Phosphatase 56 (38-126) Units/L Albumin 2.6 L (3.5-5.0) g/dL - ABG Interpretation ABG results: PT/INR, D-dimer PT 12.6 Seconds (9.4-12.1) H 03/21/17 05:20 - VTE Documentation of Mechanical Device: Intermittent pneumatic compression device Consult Discharge Plan - Plan Referrals: Florence De DO [Primary Care Provider] -
[2017-03-24 03:03] LABS: Basophils % 0.3 %; Eosinophils # 0.3 K/mcL (0.0-0.6); Eosinophils % 3.4 %; Hemoglobin 11.4 g/dL (11.5-15.4); Immature Granulocytes % 0.4 % (0-4); Lymphocytes # 2.2 K/mcL (0.6-4.6); Lymphocytes % 29.2 %; Mean Corpuscular HGB Conc 32.6 g/dL (31.6-35.5); Mean Corpuscular Hemoglobin 29.5 pg (28.0-33.3); Mean Corpuscular Volume 90.7 fL (83.0-100.0); Monocytes # 0.7 K/mcL (0.0-1.3); Monocytes % 9.3 %; Neutrophils # 4.4 K/mcL (1.6-8.9); Platelet Count 269 K/mcL (140-400); Red Blood Count 3.86 M/mcL (3.82-4.97); Red Cell Distribution Width 13.6 % (11.5-14.5); Segmented Neutrophils % 57.4 %
[2017-03-24 03:16] LABS: Alanine Aminotransferase 6 Units/L (0-55); Alkaline Phosphatase 62 Units/L (38-126); Aspartate Amino Transferase 16 Units/L (5-34); BUN/Creatinine Ratio 11 (6-26); Bilirubin,Total 0.5 mg/dL (0.2-1.2); Blood Urea Nitrogen 8 mg/dL (7-20); Calcium 9.1 mg/dL (8.6-10.8); Carbon Dioxide 25 mEq/L (19-29); Chloride 109 mEq/L (98-109); Globulin 3.1 g/dL (2.4-3.5); Glucose 93 mg/dL (70-99); Osmolality,Calculated 292 (280-300); Potassium 3.4 mEq/L (3.5-4.5); Sodium 142 mEq/L (136-145); Total Protein 6.1 g/dL (6.0-8.3); eGFR For African Americans > 60 (> 60); eGFR For Non-African Americans > 60 (> 60)
[2017-03-24] MEDS: *HR* Heparin 5,000 UNIT/ML VIAL SQ SCH ×2 (05:13→05:16)
--- NOTE | 2017-03-24 07:42 | Discharge Summary ---
Date of Encounter: 03/24/17 Time of Encounter: 07:40 - Discharge Diagnosis (1) Compression fracture of L1 lumbar vertebra Priority: Primary Status: Acute Comments: Intractable pain secondary to compression fracture of L1 lumbar vertebra Secondary to fall on day of presentation. L-spine MRI showed also an acute L2 burst fracture and subacute/chronic bilateral sacral insufficiency fractures. S/p L1 kyphoplasty on 03/22/[address] Arora. Qualifiers: Encounter type: initial encounter Fracture type: closed Qualified Code(s) : S32.010A - Wedge compression fracture of first lumbar vertebra, initial encounter for closed fracture (2) Dementia Priority: Secondary Status: Chronic Qualifiers: Dementia type: Alzheimer's disease Alzheimer's disease onset: unspecified onset Dementia behavioral disturbance: with behavioral disturbance Qualified Code(s): G30.8 - Other Alzheimer's disease; F02.81 - Dementia in other diseases classified elsewhere with behavioral disturbance (3) GERD (gastroesophageal reflux disease) Priority: Secondary Status: Chronic Qualifiers: Esophagitis presence: without esophagitis Qualified Code(s): K21.9 - Gastro -esophageal reflux disease without esophagitis (4) HTN (hypertension) Priority: Secondary Status: Chronic Qualifiers: Hypertension type: essential hypertension Qualified Code(s): I10 - Essential (primary) hypertension (5) Bacteriuria, asymptomatic Priority: Secondary Status: Acute (6) Hypokalemia Priority: Secondary Status: Acute - Discharge Medications Prescriptions: LORazepam [Ativan] 0.5 mg PO Q12HR PRN #15 tablet PRN Reason: Anxiety Tramadol HCl [Ultram] 50 mg PO TID PRN #20 tablet PRN Reason: Pain Home Medications: Cranberry 400 mg PO DAILY 02/15/16 [History] Donepezil [Aricept] 10 mg PO HS 02/15/16 [History] Docusate [Colace] 100 mg PO BID 03/19/16 [History] Ergocalciferol (VITAMIN D2) [Vitamin D] 400 unit PO DAILY 03/19/16 [History] Paroxetine [Paxil] 20 mg PO DAILY 03/20/16 [History] Megestrol Acetate [Megace] 800 mg PO DAILY 10/18/16 [History] Polyethylene Glycol 3350 [Smoothlax] 17 gm PO DAILY 10/18/16 [History] Ondansetron ODT [Zofran ODT] 4 mg SL Q6HR PRN #14 tab.rapdis 03/18/17 [Rx] Acetaminophen [Tylenol] 650 mg PO Q6HR PRN 03/19/17 [History] LORazepam [Ativan] 0.5 mg PO Q12HR PRN #15 tablet 03/24/17 [Rx] Tramadol HCl [Ultram] 50 mg PO TID PRN #20 tablet 03/24/17 [Rx] amLODIPine [Norvasc] 10 mg PO DAILY tablet 03/24/17 [Rx] Allergies/Adverse Reactions: 3 Allergy/AdvReac Type Severity Reaction Status Date / Time Sulfa (Sulfonamide Allergy See Verified 03/20/16 13:54 Antibiotics) Comments egg AdvReac Gastrointestinal Verified 03/20/16 13:54 Upset milk AdvReac Gastrointestinal Verified 03/20/16 13:54 Upset morphine AdvReac Confusion Verified 03/20/16 13:54 nitrofurantoin AdvReac Nausea Verified 03/20/16 13:54 [From Macrobid] Penicillins AdvReac Nausea Verified 03/20/16 13:54 Date of admission: 03/21/17 15:21 Primary care physician: Hayes Molina Consults: 03/22/17 14:26 Consult to Occupational Therapy [CONS] Routine Comment: Evaluate, develop and implement POC Reason for Consult: No bending, lifting or twisting, log roll when getting out of bed Consult to Physical Therapy [CONS] Routine Comment: Evaluate, develop and implement POC Reason for Consult: Postoperative rehabilitation Consult to Grab Jack Worker [CONS] Routine Reason for SW Consult: Post operative rehabilitation - Patient Status Disposition: Transfer SNF Condition: Fair - Discharge Instructions Follow Up With: Florence De DO [Primary Care Provider] - Additional Instructions: Follow-up with primary care physician within the next 2 weeks. Fall precautions. - Diet and Activity Activity: as per physical therapy Diet: low salt diet Hospital course: Ms. Mahoney is a 86 year old female with PMH of Dementia, HTN, GERD, was 2 porosis, syncopal episodes, multiple falls who was brought to the ER s/p a fall. Patient lived alone however had 24 hour video surveillance supervision which found the patient getting out of bed and falling to the ground, EMS brought the patient to the ER. At baseline, patient is AAO x 0 due to her severe dementia but she is pleasantly confused. Reported severe lower back pain, imaging findings were concerning for L1 compression fracture. Theres also a remote compression fracture of T2 reported. As per family, patient was unable to tolerate narcotics because it causes her severe delirium. L-spine MRI showed also an acute L2 burst fracture and subacute/chronic bilateral sacral insufficiency fractures. Cont pain control, fall precautions, PT/OT evaluation when able. Underwent an L1 kyphoplasty on 03/22/[address] Arora. Was diagnosed with asymptomatic bacteriuria with advanced age. Completed 3 days Keflex . Currently stable to be discharged to Rehabilitation. Her potassium was found to be low at 2.9 which was repleted - Time Spent with Patient Total time spent providing and/or coordinating discharge services: Greater than 30 minutes (40 min) - Constitutional Vitals: Temp Pulse Resp BP Pulse Ox 97.5 F L 108 19 152/82 95 03/24/17 04:22 03/24/17 04:22 03/23/17 23:40 03/24/17 04:22 03/24/17 04:22 General appearance: Present: cachectic, A&O X 1, no acute distress, underweight Exam: - Head Head exam: Present: atraumatic, normocephalic - Eye Eye exam: Present: PERRL, conjuntiva pink, sclera anicteric Pupils: Present: PERRL - Neck Neck exam general surgery: Present: supple, trachea midline. Absent: lymphadenopathy - Respiratory Respiratory exam: Present: CTAB. Absent: accessory muscle use, rales, rhonchi, wheezes - Cardiovascular Cardiovascular exam: Present: RRR, +S1, +S2. Absent: diastolic murmur, gallop, rubs, systolic murmur - GI/Abdominal GI/Abdominal exam: Present: normal bowel sounds, soft, no peritoneal signs. Absent: distended, tenderness - Extremities Exam Extremities exam: Present: warm, radial pulses palpable and symmetrical. Absent : calf tenderness, cyanotic, pedal edema - Neurological Exam Neurological exam: Present: CN II-XII intact, no focal deficits. Absent: oriented X3, pronater drift, facial droop, speech deficit Additional comments: Kyphosis evidenced - VTE Documentation of Mechanical Device: Intermittent pneumatic compression device
[2017-03-24 07:45] VITALS: BP 178/92
--- NOTE | 2017-03-24 07:53 | Physician Discharge Referral ---
ExtendedCare Referral Info Provider in Charge after Transfer: PCP Institutional Level of Care: Skilled - Diagnosis (1) Compression fracture of L1 lumbar vertebra Status: Acute (2) Dementia Status: Chronic (3) GERD (gastroesophageal reflux disease) Status: Chronic (4) HTN (hypertension) Status: Chronic (5) Bacteriuria, asymptomatic Status: Acute (6) Hypokalemia Status: Acute - Transfer Medications Prescriptions: LORazepam [Ativan] 0.5 mg PO Q12HR PRN #15 tablet PRN Reason: Anxiety Tramadol HCl [Ultram] 50 mg PO TID PRN #20 tablet PRN Reason: Pain Home Medications: Cranberry 400 mg PO DAILY 02/15/16 [History] Donepezil [Aricept] 10 mg PO HS 02/15/16 [History] Docusate [Colace] 100 mg PO BID 03/19/16 [History] Ergocalciferol (VITAMIN D2) [Vitamin D] 400 unit PO DAILY 03/19/16 [History] Paroxetine [Paxil] 20 mg PO DAILY 03/20/16 [History] Megestrol Acetate [Megace] 800 mg PO DAILY 10/18/16 [History] Polyethylene Glycol 3350 [Smoothlax] 17 gm PO DAILY 10/18/16 [History] Ondansetron ODT [Zofran ODT] 4 mg SL Q6HR PRN #14 tab.rapdis 03/18/17 [Rx] Acetaminophen [Tylenol] 650 mg PO Q6HR PRN 03/19/17 [History] LORazepam [Ativan] 0.5 mg PO Q12HR PRN #15 tablet 03/24/17 [Rx] Tramadol HCl [Ultram] 50 mg PO TID PRN #20 tablet 03/24/17 [Rx] amLODIPine [Norvasc] 10 mg PO DAILY tablet 03/24/17 [Rx] Allergies/Adverse Reactions: 3 Allergy/AdvReac Type Severity Reaction Status Date / Time Sulfa (Sulfonamide Allergy See Verified 03/20/16 13:54 Antibiotics) Comments egg AdvReac Gastrointestinal Verified 03/20/16 13:54 Upset milk AdvReac Gastrointestinal Verified 03/20/16 13:54 Upset morphine AdvReac Confusion Verified 03/20/16 13:54 nitrofurantoin AdvReac Nausea Verified 03/20/16 13:54 [From Macrobid] Penicillins AdvReac Nausea Verified 03/20/16 13:54 - Respiratory Orders Smoking Cessation: Smoking cessation has been advised. For more information, call the [place] Tobacco Quit Line at 5-505-CFUN-NOW. - Advance Directives Code Status: DNR-Arrest/Don't Intubate - Diet Orders No Added Salt (AMADOR) House Supplement per Dietary: Follow-up with primary care physician within the next 2 weeks. Fall precautions CERTIFICATION: I certify that the transfer of the above named patient to an Extended Care Facility is necessary for the continuing treatment of the diagnosis listed. The above information is true and accurate reflection of patient's current condition. Confidential - Redisclosure prohibited without a patient's written consent.
--- NOTE | 2017-03-24 08:24 | Orthopedics Progress Note ---
Date of Encounter: 03/24/17 Time of Encounter: 08:22 Subjective Principal diagnosis: Vertebral compression fracture L2, osteopenia Interval history: S: Mild confusion. No new complaints related to the back. O: Afebrile and vital signs are stable Band-Aid over her kyphoplasty site Neurovascularly intact to the bilateral lower extremities A: Post L1 kyphoplasty, doing well Resume postoperative plan Anticipate discharge today Objective Vital signs: Vital Signs Temp Pulse Resp BP Pulse Ox 03/24/17 07:43 98.5 F 100 18 178/92 95 03/24/17 04:22 97.5 F L 108 152/82 95 03/23/17 23:40 19 03/23/17 23:29 97.8 F 93 24 168/83 96 03/23/17 18:34 98.0 F 99 16 135/70 95 03/23/17 15:12 98.4 F 97 14 138/74 93 03/23/17 11:33 97.9 F 95 14 145/78 94 Intake and Output 03/23/17 03/24/17 03/24/17 23:59 07:59 15:59 Intake Total 50 / 50 50 / 50 Balance 50 / 50 50 / 50 Intake: Oral 50 / 50 50 / 50 Other: Meal Dinner Percent of Meal Consumed 75% Stool Size Large Stool Consistency soft Stool Color Brown # Voids 1 # Urine Diapers 1 Weight 97 kg - Labs CBC & BMP: 03/24/17 02:49 03/24/17 02:49 Labs: Abnormal lab results Hgb 11.4 g/dL (11.5-15.4) L 03/24/17 02:49 Hct 35.0 % (35.3-44.9) L 03/24/17 02:49 PT 12.6 Seconds (9.4-12.1) H 03/21/17 05:20 Potassium 3.4 mEq/L (3.5-4.5) L 03/24/17 02:49 Albumin 3.0 g/dL (3.5-5.0) L 03/24/17 02:49 Albumin/Globulin Ratio 1.0 (1.1-2.2) L 03/24/17 02:49 Urine Clarity Cloudy (Clear) A 03/19/17 04:28 Urine Protein 30 mg/dL (Neg-Trace) H 03/19/17 04:28 Urine Ketones 40 mg/dL (Negative) H 03/19/17 04:28 Urine Blood Large (Negative) H 03/19/17 04:28 Urine Bilirubin Small (Negative) H 03/19/17 04:28 Ur Leukocyte Esterase Small (Negative) H 03/19/17 04:28 Urine Microscopic WBC 30-50 per hpf (0-3) H 03/19/17 04:28 Urine Bacteria Many per hpf (None-Few) H 03/19/17 04:28 - VTE Documentation of Mechanical Device: Intermittent pneumatic compression device Consult Discharge Plan - Plan Additional Instructions: Follow-up with primary care physician within the next 2 weeks. Fall precautions. Referrals: Florence De DO [Primary Care Provider] - Prescriptions: LORazepam [Ativan] 0.5 mg PO Q12HR PRN #15 tablet PRN Reason: Anxiety Tramadol HCl [Ultram] 50 mg PO TID PRN #20 tablet PRN Reason: Pain
[2017-03-24] MEDS: Megestrol Acetate 400 MG/10 ML UDC PO SCH (09:53)
[2017-03-24] MEDS: Cholecalciferol (D-3) 1,000 UNIT TABLET PO SCH (10:05)
[2017-03-24] MEDS: Acetaminophen 325 MG TABLET PO PRN (10:05)
[2017-03-24] MEDS: amLODIPine 5 MG TABLET PO SCH (10:05)
== END 2017-03-24 12:20 | DRG 516 ==
LOC: 3NENU 21:53 → EMEROO 21:53 → 3NENU 03-19 00:43 → SUATTDRO 03-21 15:21
PROVIDERS: ADMIT Internal Medicine; ATTEND Internal Medicine